=== PATIENT | male | born 1985 | race Caucasian/White ===

== ENCOUNTER → 2022-07-12 14:12 | Outpatient (CLI) | payer OTHER, SELFPAY ==
--- NOTE | 2022-07-12 14:17 | XR_ITS ---
FINAL REPORT CLINICAL HISTORY: shoulder pain FINDINGS: 3 views of the right shoulder were obtained. There is no acute fracture or dislocation. The joint spaces are intact. There are no soft tissue abnormalities. IMPRESSION: No acute process. Reviewed, Interpreted and Dictated by Jair Gray MD Transcribed by [place] [facility]
== END ==
PROVIDERS: PCP Emergency Medicine; Visit Provider Orthopaedic Surgery
DX: M25.511 Pain in right shoulder (principal)
CPT/HCPCS: 73030

== ENCOUNTER 2022-08-28 11:00 | Outpatient (RCR) | payer OTHER, SELFPAY ==
--- NOTE | 2022-08-02 10:39 | HMH.OTOPEV ---
OT Inpatient Evaluation Rehab OT Outpatient Eval Start: 08/02/22 10:28 Freq: Status: Active Protocol: Document 08/02/22 10:28 RMARSHALL (Rec: 08/02/22 10:38 [facility] [id number] E-signed By Morenita George, OT Outpatient Therapy Subjective History Subjective History Pt is a 37 year old male who reports to therapy for initial evaluation to right shoulder. Pt explains his shoulder became painful ~1 year ago while working at [employer]. Pt does not recall a specific injury causing his pain to begin. However, while working at [employer] he was completing repetitive motions of UE's, overhead lifting, and push/ pulling of heavier objects. Pt's pain has gradually increased and become constant within the past year. At this time, pt does demonstrate with decreased AROM and strength at right shoulder. Pt will continue to be seen in order to address deficits. Chief Complaint Pain,Stiff,Weakness Symptom Type Ache,Sharp,Dull,Shooting Symptoms Relieved By Rest/Positioning Symptoms Aggravated By Physical Activity,Lifting Prior Functional Limitations None Current Functional Limitations Reaching,Lifting,Housework, Sleeping,Recreation Activity Symptom Description Constant but Variable Level of pain today (0-10) 3 Pain scale - at its best (0-10) 2 Pain scale - at its worst (0-10) 10 Shoulder/Elbow Eval Shoulder Objective Measurements Shoulder ROM Right Shoulder Abduction Active Range of 115 degrees Motion (degrees) Shoulder Flexion Active Range of Motion 115 degrees (degrees) Query Text: Shoulder External Rotation Active Range 50 degrees of Motion (degrees) Shoulder Internal Rotation Active Range 65 degrees of Motion (degrees) pain with active ROM shoulder exam right standard pain with passive ROM shoulder exam right standard decreased ROM shoulder exam standard right Shoulder MMT Shoulder Abduction Strength Grade 4- Good- Shoulder Extension Strength Grade 4- Good- Shoulder Flexion Strength Grade 4- Good- Shoulder External Rotation Strength 4- Good- Grade
== END 2022-08-28 11:05 | disposition home or self-care (01) ==
LOC: OT 11:00
PROVIDERS: PCP Emergency Medicine; Visit Provider Orthopaedic Surgery
DX: M25.511 Pain in right shoulder (principal)
CPT/HCPCS: 97166

== ENCOUNTER → 2022-12-07 22:59 | Outpatient (CLI) | payer OTHER, SELFPAY ==
[2022-12-07 17:39] LABS: Basophils % 0.7 % (0.1-2.0); Eosinophils # 0.2 K/mm3 (0.0-0.4); Eosinophils % 3.9 % (0.1-12.0); Hematocrit 48.4 % (42.0-52.0); Hemoglobin 15.9 g/dL (14.1-18.0); Mean Corpuscular HGB Conc 32.8 g/dL (31.8-35.4); Mean Corpuscular Hemoglobin 29.9 pg (27.0-31.2); Mean Corpuscular Volume 91.3 fl (80-94); Mean Platelet Volume 8.2 fl (7.4-10.4); Monocytes # 0.5 K/mm3 (0.1-1.0); Monocytes % 9.1 % (1.7-9.3); Neutrophils # 2.5 K/mm3 (1.8-7.8); Neutrophils % 48.2 % (37.0-80.0); Platelet Count 269 K/mm3 (142-424); Red Cell Distribution Width 13.4 % (11.5-17.5); White Blood Count 5.3 K/mm3 (4.8-10.8)
[2022-12-07 17:52] LABS: Alanine Aminotransferase 37 U/L (12-78); Albumin Level 4.7 g/dl (3.5-5.0); Albumin/Globulin Ratio 1.6 (1.1-1.8); Alkaline Phosphatase 76 U/L (38-126); Aspartate Amino Transferase 48 U/L (17-59); Bilirubin,Total 0.6 mg/dl (0.2-1.3); Blood Urea Nitrogen 20 mg/dl (9-20); Calcium 9.2 mg/dl (8.4-10.2); Carbon Dioxide 27 mmol/L (22.0-30.0); Chloride 104 mmol/L (98-107); Chol/HDL Ratio 2.5 (1-3.5); Cholesterol 157 mg/dl (140-200); Estimated Glomerular Filt Rate 57 ml/min (>60); GFR (African American) 69 ML/MIN (>60); Glucose 95 mg/dl (74-100); HDL Cholesterol 64 mg/dl (40-60); Sodium 135 mmol/L (136-145); Total Protein,Serum 7.7 g/dl (6.3-8.2); Triglycerides 46 mg/dl (30-150); VLDL Cholesterol 9 mg/dL (0-40)
[2022-12-16 21:21] LABS: Hep A Ab, IgM NEGATIVE; Hepatitis B Core Antibody IgM NEGATIVE; Hepatitis B Surface Antigen NEGATIVE; Hepatitis C Antibody REACTIVE
== END ==
PROVIDERS: PCP Student in an Organized Health Care Education/Training Program; Visit Provider Student in an Organized Health Care Education/Training Program
DX: K76.89 Other specified diseases of liver (principal)
CPT/HCPCS: 80053; 80061; 80074; 85025

== ENCOUNTER 2023-01-09 01:28 | Emergency (ER) | payer SELFPAY ==
[2023-01-09 01:28] VITALS: BP 156/90; PULSE 88; RESP 103; TEMP 36.3; O2SAT 98; BMI 26.6
--- NOTE | 2023-01-09 01:31 | ECG_ITS ---
APPROVED REPORT Exam: Resting ECG HR:98 bpm ECG Measurements Heart Rate 98 AXES AK 148 P 76 QRSd 74 QRS 78 QT 354 T 53 QTc 410 Conclusion SINUS RHYTHM NORMAL ECG UNCONFIRMED REPORT Electronically signed by : Giovanni Irene MD 01/10/2023 01:44:47
[2023-01-09 01:35] VITALS: BMI 26.6
--- NOTE | 2023-01-09 01:45 | PC.NURSE ---
Pt brought back per his request
[2023-01-09 01:46] LABS: Basophils # 0.1 K/mm3 (0-0.2); Basophils % 1.1 % (0.1-2.0); Eosinophils # 0.1 K/mm3 (0.0-0.4); Eosinophils % 1.4 % (0.1-12.0); Hematocrit 44.9 % (42.0-52.0); Hemoglobin 14.5 g/dL (14.1-18.0); Lymphocytes # 2.8 K/mm3 (0.7-4.5); Lymphocytes % 34.8 % (10-50); Mean Corpuscular HGB Conc 32.2 g/dL (31.8-35.4); Mean Corpuscular Hemoglobin 29.3 pg (27.0-31.2); Mean Corpuscular Volume 90.9 fl (80-94); Mean Platelet Volume 8.3 fl (7.4-10.4); Monocytes # 0.7 K/mm3 (0.1-1.0); Monocytes % 8.3 % (1.7-9.3); Neutrophils # 4.4 K/mm3 (1.8-7.8); Neutrophils % 54.3 % (37.0-80.0); Platelet Count 216 K/mm3 (142-424); Red Blood Count 4.94 M/mm3 (4.60-6.20); Red Cell Distribution Width 13.4 % (11.5-17.5); White Blood Count 8.1 K/mm3 (4.8-10.8)
[2023-01-09 01:48] LABS: Chloride 96 mmol/L (98-107); Potassium 3.6 mmoL/L (3.5-5.1); Sodium 133 mmol/L (136-145)
[2023-01-09 01:50] LABS: Blood Urea Nitrogen 23 mg/dl (9-20)
[2023-01-09 01:51] LABS: Alanine Aminotransferase 42 U/L (12-78); Albumin Level 4.3 g/dl (3.5-5.0); Albumin/Globulin Ratio 1.6 (1.1-1.8); Alkaline Phosphatase 72 U/L (38-126); Anion Gap 10.6 mEq/L (5-15); Aspartate Amino Transferase 69 U/L (17-59); Bilirubin,Total 0.6 mg/dl (0.2-1.3); Calcium 8.4 mg/dl (8.4-10.2); Carbon Dioxide 30 mmol/L (22.0-30.0); Creatinine Clearance Estimated 80 mL/min (50-200); Estimated Glomerular Filt Rate 62 ml/min (>60); Ethyl Alcohol < 10 mg/dl (0-10); GFR (African American) 75 ML/MIN (>60); Globulin 2.7 g/dL (1.3-3.2); Glucose 279 mg/dl (74-100)
[2023-01-09 01:52] LABS: Acetaminophen < 10 ug/ml (10-30); Salicylate < 1.0 mg/dL (2.0-20.0)
--- NOTE | 2023-01-09 01:59 | PC.NURSE ---
Pt's and his sister changed out as visitor. Pt is now asking Can I leave? I don't want any tests done, I just want to go home. My will watch me . This RN & his sister attempted to discuss with pt the risks for a rebound overdose. He said my is gonna keep close eye on me tonight . I further educated him on not taking any further sedating medications, drugs, or alcohol. His sister states I will sign him out and make sure to come back with any changes . AMA form completed.
[2023-01-09 02:01] VITALS: BP 154/90; PULSE 90; RESP 19; TEMP 36.4; O2SAT 100
[2023-01-09 02:13] LABS: C-Reactive Protein 0.7 mg/L (0-4)
[2023-01-09 02:17] LABS: Erythrocyte Sedimentation Rate 11 mm/hr (0-15)
[2023-01-09 02:26] LABS: Procalcitonin 0.066 ng/mL (0.0-2.0)
== END 2023-01-09 02:02 | disposition left against medical advice (07) ==
PROVIDERS: Emergency Provider Emergency Medicine; PCP Emergency Medicine
DX: T40.1X1A Poisoning by heroin, accidental (unintentional), initial encounter (principal)
CPT/HCPCS: 80053; 80329; 84145; 85025; 85651; 86140; 93005; 99283